=== PATIENT | male | born 1955 ===

== ENCOUNTER 2017-11-12 18:56 | Emergency (ER) | payer OTHER, BC ==
[2017-11-12 19:03] VITALS: BP 119/77; PULSE 70; RESP 18; TEMP 98.2; O2SAT 96
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
== END 2017-11-12 21:32 | disposition home or self-care (01) ==
LOC: C.ER 18:56
DX: S16.1XXA Strain of muscle, fascia and tendon at neck level, initial encounter (principal); S39.012A Strain of muscle, fascia and tendon of lower back, initial encounter; M25.562 Pain in left knee; V89.2XXA Person injured in unspecified motor-vehicle accident, traffic, initial encounter